=== PATIENT | female | born 1995 | race Caucasian/White ===

== ENCOUNTER 2016-09-10 14:02 | Day surgery (SDC) | payer BC ==
[~2016-09-10] VITALS: Ht 152.4 cm; Wt 48.4 kg
[2016-09-10 15:56] VITALS: Ht 152.4 cm; Wt 48.4 kg
[2016-09-10] MEDS ORDERED: EXCEDRIN MIGRAINE (16:03)
[2016-09-10 16:22] VITALS: BP 115/57; PULSE 80; RESP 20
[2016-09-10] MEDS ORDERED: PROPOFOL 20 ML ONE (16:25)
[2016-09-10] MEDS ORDERED: MIDAZOLAM 1 MG/ML 2 ML INJ ONE (16:25)
[2016-09-10] MEDS ORDERED: FENTAnyl 50 MCG/ML VIAL ONE (16:25)
--- NOTE | 2016-09-11 00:59 | GILP ---
DATE OF PROCEDURE: 09/10/2016 DATE: 09/10/2016 NAME OF PROCEDURE: Esophagogastroduodenoscopy, no biopsies per patient's request. SURGEON: Erik Yoo MD. PREOPERATIVE DIAGNOSIS: POSTOPERATIVE DIAGNOSIS: DESCRIPTION OF PROCEDURE: HISTORY AND INDICATIONS: PREMEDICATION: Monitored anesthesia care by anesthesiologist. INSTRUMENT USED: Olympus panendoscope. TECHNIQUE: After informed consent, with the patient/relatives understanding the procedure, its indic ations, potential risks and complications, including but not limited to: allergic reaction, bleeding , perforation or infection, and after all pertinent questions were answered to the patients satisfac tion, the patient/relatives signed witnessed informed consent. Following this, premedication was administered slowly IV push under careful cardiovascular and respi ratory monitoring with pulse oximetry, automatic blood pressure and classroom monitor. Once the sedative effect was achieved the patient was place in the left lateral decubitus, the panen doscope was introduced and advanced under visual control. Careful examination of the upper gastrointestinal tract, both on insertion as well as withdrawal of the instrument disclosed the following findings: ESOPHAGUS: The distal esophagus shows erythema and edema of the mucosa of a moderate degree. STOMACH: Upon entrance to the stomach, air was insufflated, the gastric champion distended normally. T here is erythema and edema of the mucosa of a moderate degree. No biopsies were obtained at the req uest of the patient. PYLORUS: Pylorus was patent and within normal limits. DUODENUM: The duodenal bulb is unremarkable. The second portion of the duodenum, however, shows fla ttening of duodenal folds. Again, no biopsies could be obtained as the patient refused consenting f or biopsies. The instrument was withdrawn. The patient tolerated the procedure well. The instrument was then withdrawn, the patient tolerated the procedure well and was transfer out of the endoscopy suite awake, and in good condition to continue recovery under observation IMPRESSION: 1. Distal esophagitis. 2. Gastritis, rule out Helicobacter pylori infection. No biopsies obtained. 3. Atrophic second portion of the duodenum, rule out celiac disease, no biopsies obtained. PLAN: The patient will be treated with PPIs, i.e., omeprazole 40 mg daily. Nonsteroidal anti-infla mmatory agents should be avoided as much as possible. The patient will require HB serology and jeremy ac disease serology. Dictated By: ERIK YOO MS/IVY Conf#: [id number] [facility]#: [id number]
== END 2016-09-10 17:37 | disposition home or self-care (01) ==
LOC: GIL 14:02
PROVIDERS: ATTEND Internal Medicine Gastroenterology
DX: R10.13 Epigastric pain (principal); K20.9 Esophagitis, unspecified; K29.70 Gastritis, unspecified, without bleeding; K31.9 Disease of stomach and duodenum, unspecified
CPT/HCPCS: 44376; 84703; J2250; J3010; Z7610

== ENCOUNTER 2019-01-20 21:50 | Emergency (ER) | payer BC ==
[~2019-01-20] VITALS: Ht 152.4 cm; Wt 52.8 kg
[~2019-01-20 21:50] MED LIST: EXCEDRIN MIGRAINE
[2019-01-20 21:53] VITALS: Ht 152.4 cm; Wt 52.8 kg
[2019-01-20] MEDS ORDERED: IBUPROFEN 800 MG TAB PO ONE (22:00)
[2019-01-20] MEDS ORDERED: IBUP-1542 PO (22:13)
--- NOTE | 2019-01-20 22:46 | ERD ---
ER Documentation Chief Complaint Chief Complaint CHEST PAIN WITH SOB X1DAY; ON/OFF; NO COUGH HPI Patient is a 23-year-old female with no medical problems who presents with chest pain. The patient had chest pain which started last night. The patient says the pain is in the midsternal area and was associated with shortness of breath. She felt like her pulse was fast. The patient felt better today but still had some discomfort. The patient has not tried any pain medicines. Patient denies cough. Upon review of old medical records this is the patient's first visit to the emergency department. The patient does have a primary doctor. ROS All systems reviewed and are negative except as per history of present illness. Medications Home Meds Active Scripts Ibuprofen* (Motrin*) 600 Mg Tab, 600 MG PO Q6H PRN for PAIN AND OR ELEVATED TEMP, #30 TAB Prov:IVANNA CARRION MD 01/20/19 Reported Medications [Excedrin Migraine ] No Conflict Check 09/10/16 Allergies Allergies: Coded Allergies: No Known Allergy (Unverified , 09/10/16) PMhx/Soc History of Surgery: No Anesthesia Reaction: No Hx Neurological Disorder: Yes (MIGRAINES) Hx Respiratory Disorders: No Hx Cardiac Disorders: No Hx Psychiatric Problems: No Hx Miscellaneous Medical Probl: No Hx Alcohol Use: No Hx Substance Use: No Hx Tobacco Use: No Smoking Status: Never smoker FmHx Family History: No coronary disease Physical Exam Vitals Vital Signs Date Temp Pulse Resp B/P (MAP) Pulse Ox O2 O2 Flow FiO2 Time Delivery Rate 01/20/19 62 16 106/73 100 Room Air 22:00 (84) 01/20/19 98.6 68 18 125/59 99 21:53 (81) Physical Exam Const: No acute distress Head: Atraumatic Eyes: Normal Conjunctiva ENT: Normal External Ears, Nose and Mouth. Neck: Full range of motion. No meningismus. Resp: Clear to auscultation bilaterally, chest wall pain with palpation Cardio: Regular rate and rhythm, no murmurs Abd: Soft, non tender, non distended. Normal bowel sounds Skin: No petechiae or rashes Back: No midline or flank tenderness Ext: No cyanosis, or edema Neur: Awake and alert Psych: Normal Mood and Affect Results 24 hrs Laboratory Tests Test 01/20/19 22:18 POC Beta HCG, Qualitative NEGATIVE Current Medications Medications Dose Sig/Sony Start Time Status Last (Trade) Ordered Route PRN Stop Time Admin Dose Reason Admin Ibuprofen 800 mg ONCE ONCE 01/20/19 DC 01/20/19 (Motrin) PO 22:00 22:12 01/20/19 22:01 Procedures/MDM EKG read by me: Rate/Rhythm: Regular rate and rhythm at a rate of 66 Intervals: Normal Impression: No evidence of ischemia or arrhythmia Chest X-ray 1V Interpreted by me: Soft Tissue: No acute abnormalities Bones: No acute abnormalities Mediastinum/Cardiac Silhouette/Lungs: No pneumonia or pneumothorax, patient does have piercings bilaterally Patient is a 23-year-old female with no medical problems who presents with chest pain. EKG and chest x-ray are negative. She has no risk factors for cardiac disease and I doubt acute coronary syndrome at this time. I doubt pneumonia, pneumothorax, pulmonary embolism, or aortic dissection. The patient will be discharged home and was given ibuprofen for pain. She will be given a prescription for ibuprofen. She can return for any worsening symptoms. She should follow-up with her primary doctor within 24 to 48 hours. Departure Diagnosis: Primary Impression: Chest pain Chest pain type: unspecified Qualified Codes: R07.9 - Chest pain, unspecified Condition: Fair Patient Instructions: Chest Pain, Uncertain Cause Referrals: Your doctor Additional Instructions: Call your primary care doctor TOMORROW for an appointment during the next 1-2 days.See the doctor sooner or return here if your condition worsens before your appointment time. IVANNA CARRION MD Jan 20, 2019 22:46
[2019-01-20 22:59] VITALS: BP 98/61; PULSE 60; RESP 14
== END 2019-01-20 22:59 | disposition home or self-care (01) ==
LOC: E/R 21:50
DX: R07.89 Other chest pain (principal)
CPT/HCPCS: 71045; 81025; 93005; Z7502; Z7610